=== PATIENT | female | born 1940 | race Caucasian/White ===

== ENCOUNTER 2022-05-18 11:57 | Outpatient (REF) | payer MEDICARE, SELFPAY ==
[2022-05-18 14:53] LABS: HCT 48.1 % (36.0-46.0); HGB 16.2 g/dL (11.2-15.7); MCH 30.5 pg (27.0-33.0); MCHC 33.7 % (32.0-36.0); MCV 91 fL (80-95); MPV 11.3 fL (8.0-11.0); Platelet Count 232 10^3/uL (130-400); RBC 5.31 10^6/uL (3.93-5.22); RDW 12.9 % (11.7-14.6); RDW-SD 43.4 fL; WBC 5.68 10^3/uL (4.4-10.8)
[2022-05-18 15:03] LABS: ALT 19 U/L (14-59); AST 28 U/L (15-37); Alkaline Phosphatase 74 U/L (46-116); Anion Gap 6.8 mmol/L (3-11); BUN 15 mg/dL (7-18); Bilirubin, Total 0.9 mg/dL (0.2-1.0); CO2 31.2 mmol/L (21.0-32.0); Calcium 9.8 mg/dL (8.5-10.1); Chloride 96 mmol/L (98-107); Glucose 112 mg/dL (74-106); Sodium 134 mmol/L (136-145); Total Protein 7.2 g/dL (6.4-8.2)
== END 2022-05-18 11:58 | disposition home or self-care (01) ==
LOC: NCHCN 11:57
PROVIDERS: PCP Family Medicine; Visit Provider Family Medicine
DX: I10 Essential (primary) hypertension (principal); D75.1 Secondary polycythemia
CPT/HCPCS: 80053; 85027

== ENCOUNTER 2024-09-09 17:04 | Emergency (ER) | payer MEDICARE, SELFPAY ==
[2024-09-09 17:07] VITALS: BP 148/84; PULSE 83; RESP 16; TEMP 36.2; O2SAT 95
[2024-09-09 17:12] VITALS: BP 148/84; PULSE 83; RESP 16; TEMP 36.2; O2SAT 95
[2024-09-09] MEDS: Tetracaine 0.5% 4 ML BTL OP (17:55)
--- NOTE | 2024-09-09 19:15 | W.ED.GENAD ---
Discharge Plan Disposition Patient Disposition: Home Discharge Details Clinical Impression: Monocular vision loss Primary Care Provider: Nicole Lion ED Provider: Liv Murry Home Meds and New Rx's Prescriptions: No Action hydrochlorothiazide 50 mg tablet 50 mg PO DAILY metoprolol succinate 50 mg tablet extended release 24 hr 50 mg PO DAILY Discharge Instructions Additional Instructions: The ophthalmology resident will meet you at [facility] for full eye examination. From that point you will determine whether or not she needs to go to the emergency department for hospital admission for further workup Drive directly to the [facility] main entrance. [employer] in the front parking lot. When you enter the building there will be someone at the desk. Ask them to page the ophthalmology resident on-call and the ophthalmology resident will meet you and take you to clinic. Discharge Data Discharge Date/Time-TO BE ENTERED AT DEPARTURE: 09/09/24 18:16 HPI General Date/Time Provider Initiated Documentation: 09/09/24 17:42. Limitations to Documentation: altered mental status (dementia) and physical limitation (hearing loss). HPI Narrative: 84-year-old female with past medical history of hearing loss and dementia presents for evaluation of right eye vision loss. She has most of the history relayed by her son. The son reports that at 530 yesterday evening they spoke on the phone and she told him that she can no longer see out of her right eye. She is not sure when this started. She denies any pain or trauma. She says it seems a little foggy and sometimes that is black. Son reports that the last time he spoke to her previous to that was on and at that time she was not mentioning any vision problems. Related Data Home Medications ?Medication ?Instructions ?Recorded ?Confirmed hydrochlorothiazide 50 mg tablet 50 mg PO DAILY 05/30/21 09/09/24 metoprolol succinate 50 mg 50 mg PO DAILY 05/30/21 09/09/24 tablet,extended release 24 hr Allergies Allergy/AdvReac Type Severity Reaction Status Date / Time No Known Allergies Allergy Verified 09/09/24 17:13 General Stated Complaint: EyeProblem ERIC: 3 Exam Narrative Exam Narrative: Review of Systems: All systems reviewed & are unremarkable except as noted in HPI and below Well-developed, no acute distress NCAT normal conjunctiva Right sided APD Visual acuity unknown obtainable on the right eye, left eye 20/50 Ocular ultrasound does not reveal vitreous hemorrhage or retinal detachment No pain with eye movements, no facial pain or tenderness Eye pressure 17 in the right, 20 in the left Limited to no blink on confrontation of the right eye Is able to see shapes in general movement but not make out facial features Course Vital Signs Vital signs: Vital Signs Temperature 36.2 C L 09/09/24 17:07 Pulse 83 09/09/24 17:07 Respiratory Rate 16 09/09/24 17:07 Blood Pressure 148/84 H 09/09/24 17:07 Pulse Oximetry 95 09/09/24 17:07 Temperature 36.2 C L 09/09/24 17:12 Pulse 83 09/09/24 17:12 Respiratory Rate 16 09/09/24 17:12 Blood Pressure 148/84 H 09/09/24 17:12 Pulse Oximetry 95 09/09/24 17:12 Pain Level 0 09/09/24 17:12 Medical Decision Making Emergency evaluation of right-sided facial weakness. Patient history is significantly difficult to obtain due to her hearing loss and her dementia. The patient's eye examination reveals some concerning findings. Initial differential for painless vision loss includes retinal detachment, vitreous hemorrhage, CRVO, CR AO. At this time my examination does not reveal any acute diagnoses however I am concerned for possible central pathology. I have consulted with ophthalmology at [facility]. They are recommending a more formal urgent eye examination. At this time the patient will be discharged from this facility and will have a clinic appointment at [facility] today. Driving instructions were provided to the son. Discussion with the ophthalmology resident and attending, the patient will have a full evaluation of her eye in clinic and if there are any concerning findings that may require additional workup, she will be referred by them to the emergency department at [facility] for that. 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 Mother Heart disease Hearing loss Sister No problems noted. Son No problems noted. Son No problems noted. Social History Smoking/Tobacco Use Status: Never Smoking risk assessment performed?: Yes Alcohol Intake: never Drug use: Never Household members: none current occupation: Retired [employer] What is your relationship status?: Panel score (0-1 are the most socially isolated patients): 0
== END 2024-09-09 18:16 | disposition home or self-care (01) ==
PROVIDERS: Emergency Provider Emergency Medicine; PCP Family Medicine
DX: H54.61 Unqualified visual loss, right eye, normal vision left eye (principal); I10 Essential (primary) hypertension; F03.90 Unspecified dementia, unspecified severity, without behavioral disturbance, psychotic disturbance, mood disturbance, and anxiety
CPT/HCPCS: 99284